=== PATIENT | female | born 1965 | race Caucasian/White ===

== ENCOUNTER 2021-12-06 08:17 | Emergency (ER) | payer OTHER, MEDICAID ==
[2021-12-06 08:36] VITALS: BP 138/41; PULSE 85
[2021-12-06] MEDS ORDERED: Albuterol/Ipratropium 3.0-0.5 MG/3 ML Neb Soln NEB ONE (08:51)
[2021-12-06 09:39] LABS: CORONAVIRUS COVID-19 NAA NEGATIVE (NEGATIVE)
== END 2021-12-06 10:32 | disposition home or self-care (01) ==
LOC: JP.ED 08:17
DX: J18.9 Pneumonia, unspecified organism (principal); K21.9 Gastro-esophageal reflux disease without esophagitis; Z91.018 Allergy to other foods; Z88.5 Allergy status to narcotic agent; Z79.899 Other long term (current) drug therapy; Z72.0 Tobacco use; Z20.822 Contact with and (suspected) exposure to COVID-19
CPT/HCPCS: 0241U; 71046; 71046-26; 94640; 99282; 99284-25; J7620

== ENCOUNTER 2024-03-05 20:00 | Emergency (ER) | payer MEDICAID, OTHER ==
[2024-03-05] MEDS ORDERED: Sodium Chloride 0.9% 10 ML Syringe FLUSH PRN (20:33)
[2024-03-05] MEDS: LORazepam 2 MG/ML SDV IM ONE (20:37)
[2024-03-05 20:47] LABS: BASOPHILS PERCENT AUTO 0.3 % (0.1-1.3); EOSINOPHILS PERCENT AUTO 0.3 % (0.0-5.4); HEMATOCRIT 39.2 % (34.3-46.0); HEMOGLOBIN 14.8 g/dL (11.2-15.5); IMMATURE GRAN ABSOLUTE AUTO 0.04 K/uL (0.00-0.23); IMMATURE GRAN PERCENT AUTO 0.5 % (0.0-0.7); LYMPHOCYTES ABSOLUTE AUTO 0.92 K/uL (0.8-3.3); MEAN CORPUSCULAR HEMOGLOBIN 33.3 pg (31.6-35.5); MEAN CORPUSCULAR HGB CONC 37.8 g/dL (31.6-35.5); MEAN CORPUSCULAR VOLUME 88.1 fL (81.4-99.0); MONOCYTES ABSOLUTE AUTO 0.39 K/uL (0.20-0.90); MONOCYTES PERCENT AUTO 5.1 % (3.3-12.6); NEUTROPHILS ABSOLUTE AUTO 6.26 K/uL (1.0-7.6); NEUTROPHILS PERCENT AUTO 81.8 % (40.0-78.1); PLATELET COUNT,PLT 348 K/uL (130-375); RED BLOOD CELL COUNT 4.45 M/uL (3.77-5.24); WHITE BLOOD CELL COUNT,WBC 7.7 K/uL (3.2-11.0)
[2024-03-05] MEDS: Lactated Ringers 1,000 ML IV SCH (20:48)
[2024-03-05 20:49] LABS: BASOPHILS ABSOLUTE AUTO 0.02 K/uL (0.00-0.10); EOSINOPHILS ABSOLUTE AUTO 0.02 K/uL (0.00-0.40)
[2024-03-05 20:52] VITALS: BP 122/59; PULSE 80
[2024-03-05 21:19] LABS: A/G RATIO 0.9 (1.2-2.2); ALANINE AMINOTRANSFERASE,ALT 22 U/L (12-78); ALBUMIN 3.3 g/dL (3.4-5.0); ALKALINE PHOSPHATASE 116 U/L (46-116); ASPARTATE AMNIOTRANSFERASE,AST 30 U/L (15-37); BLOOD UREA NITROGEN,BUN 6 mg/dL (7-18); CALCIUM 8.8 mg/dL (8.5-10.1); CARBON DIOXIDE,CO2 20 mmol/L (21-32); CHLORIDE,CL 82 mmol/L (100-108); CREATININE 0.5 mg/dL (0.6-1.0); ESTIMATED GFR 109 mL/min (>60); GLUCOSE RANDOM 152 mg/dL (74-106); POTASSIUM,K 3.6 mmol/L (3.6-5.2); TROPONIN I HIGH SENSITIVITY 4.6 pg/mL (<=60.3)
[2024-03-05 21:21] LABS: ANION GAP 16.6 mmol/L (5.0-14.0); SODIUM,NA 115 mmol/L (140-148)
[2024-03-05 21:54] LABS: CORONAVIRUS COVID-19 NAA NEGATIVE (NEGATIVE); INFLUENZA A NAA NEGATIVE (NEGATIVE); INFLUENZA B NAA NEGATIVE (NEGATIVE); RESPIRATORY SYNCYTIAL VIR NAA NEGATIVE (NEGATIVE)
[2024-03-05] MEDS: Sodium Chloride 0.9% 1,000 ML IV SCH (22:54)
== END 2024-03-06 01:39 | disposition home or self-care (01) ==
LOC: JP.ED 20:00
DX: K52.89 Other specified noninfective gastroenteritis and colitis (principal); E87.1 Hypo-osmolality and hyponatremia; K21.9 Gastro-esophageal reflux disease without esophagitis; Z79.899 Other long term (current) drug therapy; Z88.8 Allergy status to other drugs, medicaments and biological substances; Z88.5 Allergy status to narcotic agent; Z91.013 Allergy to seafood
CPT/HCPCS: 0241U; 36415; 80053; 83605; 83690; 84295; 84484; 85025; 96360; 96361; 96372; 99284; J2060; J7030; J7120